=== PATIENT | female | born 1990 | race Caucasian/White ===

== ENCOUNTER 2021-02-22 02:21 | Emergency (ER) | payer SELFPAY ==
[2021-02-22] MEDS ORDERED: SODIUM CHLORIDE 0.9% 1,000 ML IV STA (02:24)
--- NOTE | 2021-02-22 02:25 | ED ---
Altered Mental Status HPI - General Stated Complaint: seizure, ETOH Time Seen by Provider: 02/22/21 02:23 Source: RN notes reviewed, old records reviewed Mode of arrival: EMS Limitations: no limitations - History of Present Illness Initial Comments: This is a 30-year-old female coming in for altered mental status possible seizure versus alcohol intoxication. Does admit to sick significant amount of alcohol drinking tonight. Currently awake and alert not homicidal or suicidal, drink alcohol with attempt MD Complaint: altered mental status, confusion -: hour(s) Severity: moderate Consistency of Symptoms: waxing and waning, getting worse Context: alcohol abuse, history of similar presentation Associated Symptoms: denies other symptoms - Related Data Allergies Allergy/AdvReac Type Severity Reaction Status Date / Time Penicillins Allergy Rash/Hives Verified 02/22/21 02:39 codeine AdvReac Dyspnea Verified 02/22/21 02:39 Review of Systems ROS Statement: Those systems with pertinent positive or pertinent negative responses have been documented in the HPI. ROS Other: All systems not noted in ROS Statement are negative. General Exam General appearance: alert, in no apparent distress Head exam: Present: atraumatic, normocephalic, normal inspection Eye exam: Present: normal appearance, PERRL, EOMI. Absent: scleral icterus, conjunctival injection, periorbital swelling ENT exam: Present: normal exam, mucous membranes moist Neck exam: Present: normal inspection. Absent: tenderness, meningismus, lymphadenopathy Respiratory exam: Present: normal lung sounds bilaterally. Absent: respiratory distress, wheezes, rales, rhonchi, stridor Cardiovascular Exam: Present: regular rate, normal rhythm, normal heart sounds. Absent: systolic murmur, diastolic murmur, rubs, gallop, clicks GI/Abdominal exam: Present: soft, normal bowel sounds. Absent: distended, tenderness, guarding, rebound, rigid Extremities exam: Present: normal inspection, full ROM, normal capillary refill. Absent: tenderness, pedal edema, joint swelling, calf tenderness Back exam: Present: normal inspection Neurological exam: Present: alert, oriented X3, CN II-XII intact Psychiatric exam: Present: normal affect, normal mood Skin exam: Present: warm, dry, intact, normal color. Absent: rash Course Vital Signs 02/22/21 02/22/21 02/22/21 02:22 03:58 04:29 Temperature 98.1 F 98.2 F Pulse Rate 113 H 111 H 112 H Respiratory 18 18 18 Rate Blood Pressure 113/82 108/71 121/95 O2 Sat by Pulse 100 98 98 Oximetry - Reevaluation(s) Reevaluation #1: Medical record is reviewed Patient symptoms have resolved here in the emergency department Patient informed results and questions are answered Medical Decision Making - Medical Decision Making 30 female presented today for evaluation regarding significant alcohol intoxication. At this time patient's awake and alert without significant complaint can be discharged home - Lab Data Result diagrams: 02/22/21 03:05 Lab Results 02/22/21 Range/Units 03:05 Sodium 143 (137-145) mmol/L Potassium 4.5 (3.5-5.1) mmol/L Chloride 114 H (98-107) mmol/L Carbon Dioxide 17 L (22-30) mmol/L Anion Gap 12 mmol/L BUN 11 (7-17) mg/dL Creatinine 0.71 (0.52-1.04) mg/dL Est GFR (CKD-EPI)AfAm >90 (>60 ml/min/1.73 sqM) Est GFR (CKD-EPI)NonAf >90 (>60 ml/min/1.73 sqM) Glucose 96 (74-99) mg/dL Calcium 8.5 (8.4-10.2) mg/dL Phosphorus 3.9 (2.5-4.5) mg/dL Magnesium 1.8 (1.6-2.3) mg/dL Total Bilirubin 0.6 (0.2-1.3) mg/dL AST 33 (14-36) U/L ALT 13 (4-34) U/L Alkaline Phosphatase 30 L (38-126) U/L Total Protein 7.3 (6.3-8.2) g/dL Albumin 4.0 (3.5-5.0) g/dL Lipase 207 (23-300) U/L Serum Alcohol 189 mg/dL Disposition Clinical Impression: Acute anxiety, Alcohol intoxication Disposition: HOME SELF-CARE Condition: Good Instructions (If sedation given, give patient instructions): Generalized Anx iety Disorder (ED) Is patient prescribed a controlled substance at d/c from ED?: No Referrals: None,Stated [Primary Care Provider] - 1-2 days
[2021-02-22 02:38] VITALS: RESP 18
[2021-02-22 03:31] LABS: ALT 13 U/L (4-34); African American GFR (CKD) >90 (>60 ml/min/1.73 sqM); Anion Gap 12 mmol/L; Blood Urea Nitrogen 11 mg/dL (7-17); Calcium 8.5 mg/dL (8.4-10.2); Carbon Dioxide 17 mmol/L (22-30); Chloride 114 mmol/L (98-107); Glucose 96 mg/dL (74-99); Lipase 207 U/L (23-300); Non-African American GFR(CKD) >90 (>60 ml/min/1.73 sqM); Sodium 143 mmol/L (137-145); Total Bilirubin 0.6 mg/dL (0.2-1.3)
[2021-02-22] MEDS ORDERED: PROCHLORPERAZINE INJ 10 MG/2 ML VIAL IVP STA (03:45)
[2021-02-22 03:56] LABS: Alcohol 189 mg/dL; Magnesium 1.8 mg/dL (1.6-2.3); Phosphorus 3.9 mg/dL (2.5-4.5); Potassium 4.5 mmol/L (3.5-5.1); Total Protein 7.3 g/dL (6.3-8.2)
[2021-02-22 03:57] LABS: AST 33 U/L (14-36); Alkaline Phosphatase 30 U/L (38-126)
[2021-02-22 04:31] VITALS: BP 121/95; PULSE 112; TEMP 98.2
== END 2021-02-22 04:31 | disposition home or self-care (01) ==
LOC: EC 02:21
DX: F41.9 Anxiety disorder, unspecified (principal); F10.129 Alcohol abuse with intoxication, unspecified; Y90.6 Blood alcohol level of 120-199 mg/100 ml; Z88.0 Allergy status to penicillin; Z88.5 Allergy status to narcotic agent
CPT/HCPCS: 36415; 80053; 83690; 83735; 84100; 80320; 99285; 96374; 96361; J0780